=== PATIENT | female | born 1950 | race Caucasian/White ===

== ENCOUNTER 2017-10-06 20:35 | Observation (INO) | payer OTHER ==
--- NOTE | 2017-10-06 20:47 | PDOC ---
History of Present Illness - General Stated Complaint: FALL Time Seen by Provider: 10/06/17 20:44 History Source: Patient - History of Present Illness Initial Comments: The patient is a 66F with a history of HTN and T2DM who presents 6 hours s/p fall at home. The patient reports that her toilet over-flowed and she slid/ tripped in the water. She states she fell backwards, landed on her buttocks, did not hit her head, and denies LOC. She states she was unable to get up and was on the ground until her family member found her 6 hours later. She denies a history of falls. She endorses pain to her hips (different than her normal sciatica pain). Pain to her elbows and left shoulder. She also endorses BLE cellulitis w/ blisters that she is unable to vocalize how long she has had. She denies taking abx. She does not know her PCP. She denies fevers/chills, chest pain, SOB, or changes in sensation. She denies abdominal pain. 10/06/17 22:39 Past History - Past Medical History Allergies/Adverse Reactions: Allergies Allergy/AdvReac Type Severity Reaction Status Date / Time Penicillins AdvReac Itching Verified 10/07/17 04:54 Home Medications: Ambulatory Orders Nebivolol HCl [Bystolic] 10 mg PO DAILY 10/07/17 Pioglitazone HCl/Metformin HCl [Pioglitazone-Metformin 15850] 15 - 850 mg PO DAILY 10/07/17 Verapamil HCl [Verapamil ER] 120 mg PO HS 10/07/17 Verapamil HCl [Verapamil ER] 240 mg PO DAILY 10/07/17 Mupirocin Cream [Bactroban 2% Cream -] 1 applic TP BID #1 tube 10/08/17 Review of Systems - Review of Systems Comments:: GENERAL/CONSTITUTIONAL: No fever or chills. No weakness HEAD, EYES, EARS, NOSE AND THROAT: No change in vision. No ear pain or discharge. No sore throat CARDIOVASCULAR: No chest pain or shortness of breath RESPIRATORY: No cough, wheezing, or hemoptysis GASTROINTESTINAL: No nausea, vomiting, diarrhea or constipation GENITOURINARY: No dysuria, frequency, or change in urination MUSCULOSKELETAL: +chronic back pain, rest per HPI SKIN: +BLE erythema NEUROLOGIC: No headache, vertigo, loss of consciousness, or change in strength/ sensation ENDOCRINE: No increased thirst. No abnormal weight change HEMATOLOGIC/LYMPHATIC: No anemia, easy bleeding, or history of blood clots ALLERGIC/IMMUNOLOGIC: No hives or skin allergy 10/06/17 20:49 *Physical Exam - Physical Exam Comments: GENERAL: Awake, alert, and fully oriented, mild distress; patient with poor hygiene; she has urine soaked clothing, and toilet paper under her clothes that she claims is just from today HEAD: No signs of trauma, normocephalic, atraumatic EYES: PERRL, EOMI, sclera anicteric, conjunctiva clear ENT: Hearing grossly normal, nares patent, oropharynx clear without exudates. Moist mucosa NECK: Normal ROM, supple, no lymphadenopathy LUNGS: No distress, speaks full sentences, clear to auscultation bilaterally HEART:Regular rate and rhythm, normal S1 and S2, no murmurs appreciated, peripheral pulses normal and equal bilaterally ABDOMEN: Soft, nontender, normoactive bowel sounds. No guarding, no rebound EXTREMITIES : Bruising to left shoulder, B/l posterior forearms, lower back, R gluteus, BLE erythema and excoriations to mid robbins. Several bruises appear to be in multiple stages of healing, though patient denies multiple falls; Reduced range of motion in all extremities 2/2 pain, no edema. No clubbing or cyanosis NEUROLOGICAL: Cranial nerves II through XII grossly intact. Stuttering speech, no focal sensorimotor deficits SKIN: BLE erythema and excoriations and bruising as noted above 10/06/17 20:50 ED Treatment Course - LABORATORY CBC & Chemistry Diagram: 10/08/17 06:00 10/08/17 06:00 Medical Decision Making - Medical Decision Making The patient is a 66F with a PMH of HTN and T2DM who presents s/p mechanical fall from home Patient with variable story to different staff. Endorsed multiple falls to nursing staff while only reported one fall upon my interview Concern for rhabdo, infection, head injury, multiple fracture, lyte imbalance; will r/o PNA, UTI ED Course CMP, CBC, UA, UCx, Serum EtOH, UDS, CPK ECG, CT head, pelvis, b/l hip, c-spine and lumbar spine/sacrum; b/l elbow XR, left shoulder XR Tylenol and naproxen for pain 10/06/17 22:48 Patient with continued pain, will give Morphine 2mg IV Plan for admission when imaging completed Patient with mild rhabdo, CK 900s 10/06/17 23:25 I have transferred care of the patient to Dr. Hall and discussed the clinical presentation, work-up and ED course thus far. 10/06/17 23:57 *DC/Admit/Observation/Transfer Diagnosis at time of Disposition: Fall, Rhabdomyolysis - Discharge Dispostion Condition at time of disposition: Improved - Prescriptions - Referrals - Patient Instructions - Post Discharge Activity
[2017-10-06] MEDS ORDERED: NAPROXEN 500 MG TABLET (FP) PO ONE (20:56)
[2017-10-06] MEDS ORDERED: ACETAMINOPHEN 1000 MG/100 ML VIAL (NON FORMULARY) IVPB ONE (21:09)
[2017-10-06] MEDS ORDERED: NAPROXEN 500 MG TABLET (FP) ONE (21:11)
[2017-10-06 22:21] LABS: HEMOGLOBIN 13.3 GM/dL (10.7-15.3); MCHC 34.2 g/dl (32.0-36.0); MEAN CELL VOLUME 84.7 fl (80-96); MEAN PLT VOLUME 11.5 fl (7.5-11.1); PLATELET COUNT 167 K/MM3 (134-434); RDW 14.8 % (11.6-15.6); WHITE BLOOD COUNT 10.8 K/mm3 (4.0-10.0)
--- NOTE | 2017-10-06 22:21 | PDOC ---
Attending Attestation - Resident Resident Name: Nbail Malhotra - ED Attending Attestation I have performed the following: I have examined & evaluated the patient, The case was reviewed & discussed with the resident, I agree w/resident's findings & plan, Exceptions are as noted - HPI HPI: 10/06/17 22:49 66 F with h/o DM, HTN presents to ER after falling today. Pt states that she slipped in the bathroom after her toilet overflowed. Pt states she fell onto her buttocks and was unable to get back up. She states she was on the floor for 6 hours before anybody found her. Pt denies head injury/LOC. Denies neck pain. Endorses L shoulder pain and lower back pain. Pt in ED is disheveled and tremulous. Admits to repeated falls at home. States she lives alone. Denies CP/SOB/palpitations/lightheadedness. Denies abdominal pain/N/V/D. - Physicial Exam PE: 10/06/17 22:58 "GENERAL: Awake, alert, in no acute distress. HEAD: No signs of trauma EYES: PERRLA, EOMI, sclera anicteric, conjunctiva clear ENT: Auricles normal inspection, hearing grossly normal, nares patent, oropharynx clear without exudates. Moist mucosa NECK: Nontender, no stepoffs, Normal ROM, supple, no lymphadenopathy, JVD, or masses LUNGS: Breath sounds equal, clear to auscultation bilaterally. No wheezes, and no crackles HEART: Regular rate and rhythm, normal S1 and S2, no murmurs, rubs or gallops ABDOMEN: Soft, nontender, normoactive bowel sounds. No guarding, no rebound. No masses EXTREMITIES: + ecchymosis to upper back and L shoulder, + erythema with open sores to BLE BACK: + lumbar TTP - Medical Decision Making 10/06/17 23:05 66 F presenting with fall. Pt disheveled, with injuries of various ages on her body. Pt likely has been having multiple falls at home, where she lives alone. Pt also tremulous on exam, concerning for possible ETOH withdrawal though pt denies ETOH or other substance use. - Labs - CT head/c-spine/pelvis - XR L shoulder and chest - Admit
[2017-10-06] MEDS ORDERED: ACETAMINOPHEN INJECTION 100 ML IVPB ONE (22:29)
[2017-10-06 22:45] LABS: URINE APPEARANCE SLCLOUDY; URINE BILIRUBIN NEGATIVE (<2.0 mg/dL); URINE COLOR YELLOW; URINE GLUCOSE (UA) NEGATIVE (NEGATIVE); URINE KETONE TRACE (NEGATIVE); URINE LEUK ESTERASE NEGATIVE (NEGATIVE); URINE NITRITE NEGATIVE (NEGATIVE); URINE PROTEIN NEGATIVE (NEGATIVE); URINE UROBILINOGEN NEGATIVE mg/dL (0.2-1.0)
[2017-10-06 22:46] LABS: ALBUMIN 3.5 g/dl (3.4-5.0); ALK PHOS 60 U/L (45-117); ANION GAP 5 (8-16); BILIRUBIN,TOTAL 0.8 mg/dL (0.2-1.0); BLOOD UREA NITROGEN 23 mg/dL (7-18); CALCIUM 9.1 mg/dL (8.5-10.1); CHLORIDE 107 mmol/L (98-107); CO2 30 mmol/L (21-32); CREATININE 0.6 mg/dL (0.55-1.02); GLUCOSE,RANDOM 163 mg/dL (74-106); POTASSIUM 3.5 mmol/L (3.5-5.1); SGOT/AST 29 U/L (15-37); SGPT/ALT 19 U/L (12-78); SODIUM 142 mmol/L (136-145); TOT PROT 6.6 g/dl (6.4-8.2)
[2017-10-06 22:47] LABS: EPI CELLS RARE /HPF (FEW); URINE BACTERIA RARE /hpf (NONE SEEN); URINE MUCUS RARE
[2017-10-06] MEDS ORDERED: morphine CARPU-JECT 4 MG/1 ML DISP.SYRIN IVPUSH ONE (22:58)
[2017-10-06] MEDS ORDERED: SODIUM CHLORIDE 0.9% 500 ML INFUS.BAG IV ONE (23:02)
[2017-10-06 23:03] LABS: COCAINE, UR NEGATIVE ng/ml (CUTOFF=300); METHADONE, UR NEGATIVE ng/ml (CUTOFF=300); OPIATES, URI NEGATIVE ng/ml (CUTOFF=300); PHENCYCLIDINE,URINE NEGATIVE ng/ml (CUTOFF=25); URINE AMPHETAMINES NEGATIVE ng/ml (CUTOFF=500); URINE BARBITURATES NEGATIVE ng/ml (CUTOFF=200); URINE BENZODIAZEPINES NEGATIVE ng/ml (CUTOFF=200)
[2017-10-06] MEDS ORDERED: MORPHINE SULFATE 2 MG/ML VIAL ONE (23:22)
--- NOTE | 2017-10-07 00:08 | PDOC ---
*Physical Exam - Vital Signs Last Vital Signs Temp Pulse Resp BP Pulse Ox 96.6 F L 73 18 160/71 96 10/06/17 20:35 10/06/17 20:35 10/06/17 20:35 10/06/17 20:35 10/06/17 20:35 ED Treatment Course - LABORATORY CBC & Chemistry Diagram: 10/06/17 22:10 10/06/17 22:10 - ADDITIONAL ORDERS Additional order review: Laboratory Results 10/06/17 10/06/17 10/06/17 22:35 22:35 22:10 Sodium Potassium Chloride Carbon Dioxide Anion Gap BUN Creatinine Creat Clearance w eGFR Random Glucose Lactic Acid Calcium Total Bilirubin AST ALT Alkaline Phosphatase Creatine Kinase Creatine Kinase Index CK-MB (CK-2) Total Protein Albumin Urine Color Yellow Urine Appearance Slcloudy Urine pH 6.0 Ur Specific [place] 1.016 Urine Protein Negative Urine Glucose (UA) Negative Urine Ketones Trace H Urine Blood 2+ H Urine Nitrite Negative Urine Bilirubin Negative Urine Urobilinogen Negative Ur Leukocyte Esterase Negative Urine WBC (Auto) 6 Urine RBC (Auto) 1 Ur Epithelial Cells Rare Urine Bacteria Rare Urine Mucus Rare Opiates Screen Negative Methadone Screen Negative Barbiturate Screen Negative Phencyclidine Screen Negative Ur Amphetamines Screen Negative MDMA (Ecstasy) Screen Negative Benzodiazepines Screen Negative Cocaine Screen Negative U Marijuana (THC) Screen Negative Alcohol, Quantitative < 5.0 10/06/17 10/06/17 10/06/17 22:10 22:10 22:09 Sodium 142 Potassium 3.5 Chloride 107 Carbon Dioxide 30 Anion Gap 5 L BUN 23 H Creatinine 0.6 Creat Clearance w eGFR > 60 Random Glucose 163 H Lactic Acid 1.3 Calcium 9.1 Total Bilirubin 0.8 AST 29 ALT 19 Alkaline Phosphatase 60 Creatine Kinase 988 H Creatine Kinase Index 1.0 CK-MB (CK-2) 10.51 H Total Protein 6.6 Albumin 3.5 Urine Color Urine Appearance Urine pH Ur Specific [place] Urine Protein Urine Glucose (UA) Urine Ketones Urine Blood Urine Nitrite Urine Bilirubin Urine Urobilinogen Ur Leukocyte Esterase Urine WBC (Auto) Urine RBC (Auto) Ur Epithelial Cells Urine Bacteria Urine Mucus Opiates Screen Methadone Screen Barbiturate Screen Phencyclidine Screen Ur Amphetamines Screen MDMA (Ecstasy) Screen Benzodiazepines Screen Cocaine Screen U Marijuana (THC) Screen Alcohol, Quantitative 10/06/17 22:10 RBC 4.60 MCV 84.7 MCHC 34.2 RDW 14.8 MPV 11.5 H - RADIOLOGY Radiograph Interpretation: Non-Con Head CT: Jd Parrish MD wrote on Oct 07, 2017 at 01:19 AM: Referring Physician: JOSELIN BLANCHARD Patient Name: SANTANA NGUYEN THIS IS A PRELIMINARY REPORT FROM IMAGING FRONT OFFICE REPRESENTATIVE DATE OF SERVICE: 2017-10-07 00:54:46 IMAGES: [id number] EXAM: HEAD CT WITHOUT CONTRAST HISTORY: Patient fell COMPARISON: None. FINDINGS: Involutional changes. No hemorrhage. No obvious infarct. Osseous structures are intact. CT Cervical Spine: Jd Parrish MD wrote on Oct 07, 2017 at 01:23 AM: Referring Physician: JOSELIN BLANCHARD Patient Name: SANTANA NGUYEN THIS IS A PRELIMINARY REPORT FROM [facility]AGING FRONT OFFICE REPRESENTATIVE DATE OF SERVICE: 2017-10-07 00:52:03 IMAGES: [id number] EXAM: CERVICAL SPINE CT W/O CONTR HISTORY: Patient fell COMPARISON: None. FINDINGS: Negative for cervical spine fracture or malalignment. Degenerative changes. Enlarged thyroid. CT Lumbar Spine: Jd Parrish MD wrote on Oct 07, 2017 at 01:31 AM: Referring Physician: JOSELIN BLANCHARD Patient Name: SANTANA NGUYEN THIS IS A PRELIMINARY REPORT FROM [facility]ING FRONT OFFICE REPRESENTATIVE DATE OF SERVICE: 2017-10-07 00:56:06 IMAGES: 530 EXAM: LUMBAR SPINE CT W/O CONTRAST HISTORY: Patient fell COMPARISON: None. FINDINGS: Degenerative changes. There is depression of the midportion of the superior and inferior endplate of L2. This looks like Schmorl's nodes rather than an acute fracture. Nevertheless, correlate with any trauma/pain to this particular area. No other lumbar spinal fracture or malalignment. The sacrum is intact as well. Note made of an enlarged uterus probably due to fibroids but recommend followup to confirm - Medications Given in the ED: ED Medications Discontinued Medications Generic Name Dose Route Start Last Admin Trade Name Freq PRN Reason Stop Dose Admin Acetaminophen 1,000 mg 10/06/17 21:09 10/06/17 22:41 Ofirmev Injection - IVPB 10/06/17 21:10 1,000 mg ONCE ONE Administration Morphine Sulfate 2 mg 10/06/17 22:58 10/06/17 23:36 Morphine Injection - IVPUSH 10/06/17 22:59 2 mg ONCE ONE Administration Naproxen 500 mg 10/06/17 20:56 10/06/17 21:17 Naprosyn - PO 10/06/17 20:57 500 mg ONCE ONE Administration Sodium Chloride 1,000 ml 10/06/17 23:02 10/06/17 23:36 Normal Saline - IV 10/06/17 23:03 1,000 ml ONCE ONE Administration Medical Decision Making - Medical Decision Making 10/07/17 00:02 Received sign out from Dr. Malhotra. In short, pt is a 66 y/o female demented at baseline presenting after unwitnessed fall at home around 15: 00 likely mechanical secondary to toilet bowl water. Tender C-spine shoulder, and lower back. Multiple wounds of varying age. Possibly s/p previous falls. Elevated CK, concerning for Rhabdo. Pending CT and Radiograph. Likely admitted. 10/07/17 01:20 Pt complaining of lower back pain. Will order tramadol for pain; pt states she does not want additional opiates. Avoiding NSAIDS with concern for rhabdo. 10/07/17 01:36 Telephone consult with [facility] Hospitalist team. Agree to admit for med/surg on observation status. 10/07/17 02:50 building tech reports he is unable to transmit the pelvic CT to Imaging [facility] layer. He further states he cannot call IT because it is a problem isolated to a single scan. Will attempt to resend. Hospital team alerted. *DC/Admit/Observation/Transfer Diagnosis at time of Disposition: Fall Qualifiers: Encounter type: initial encounter Qualified Code(s): W19.XXXA - Unspecified fall, initial encounter Rhabdomyolysis Qualifiers: Rhabdomyolysis type: traumatic Encounter type: initial encounter Qualified Code (s): T79.6XXA - Traumatic ischemia of muscle, initial encounter - Discharge Dispostion Condition at time of disposition: Fair Decision to Admit order: Yes - Referrals - Patient Instructions - Post Discharge Activity
[2017-10-07] MEDS ORDERED: traMADol HCL 50 MG TABLET PO ONE (01:32)
[2017-10-07] MEDS ORDERED: SODIUM CHLORIDE 0.9% 500 ML INFUS.BAG IV ONE (01:32)
[2017-10-07] MEDS ORDERED: traMADol HCL 50 MG TABLET ONE ×2 (01:55→09:22)
[2017-10-07] MEDS ORDERED: SODIUM CHLORIDE 1,000 ML IV SCH (02:15)
--- NOTE | 2017-10-07 02:21 | PN ---
Teaching Attending Note Name of Resident: Sukh Ramirez ATTENDING PHYSICIAN STATEMENT I saw and evaluated the patient. I reviewed the resident's note and discussed the case with the resident. I agree with the resident's findings and plan as documented. SUBJECTIVE: Patient is a 66 year old woman with history of DM, HTN presents to ER after falling today. She says that she slipped in the bathroom after her toilet overflowed. She fell onto her buttocks and was unable to get back up. She states she was on the floor for 6 hours before anybody found her. She denies head injury/LOC. Denies neck pain but has left shoulder pain and lower back pain. Admits to repeated falls at home which she attributes to worsening "sciatica". Uses a tripod walker. States she lives alone. OBJECTIVE: Alert Vital Signs Period Temp Pulse Resp BP Sys/Bragg Pulse Ox Last 24 Hr 96.6 F 73 18 160/71 96 HEENT: No Jaundice, eye redness or discharge, PERRLA, EOMI. Normocephalic, atraumatic. External ears are normal and hearing is grossly intact. No nasal discharge. Neck: Supple, nontender. No palpable adenopathy or thyromegaly. No JVD Chest: Good effort. Clear to auscultation and percussion. Heart: Regular. No S3, rub or murmur Abdomen: Not distended, soft, nontender and no HSM. No rebound or guarding. Normoactive bowel sounds. Ext: Peripheral pulses intact. Ecchymosis on both forearms (happened due to multiple efforts to lift herself off the bathroom floor); bilateral lower leg erythema with abrasions and a superficial ulcer on the left leg; tender lower back and hips and groans with movement. Skin: Warm and dry. No petechiae, rash or ecchymosis. Neuro: Alert. Oriented x3. CN 2-12 grossly intact. Sensation grossly intact in all four extremities and DTR are symmetric. Abnormal Lab Results 10/06/17 10/06/17 10/06/17 22:10 22:10 22:10 WBC 10.8 H MPV 11.5 H Anion Gap 5 L BUN 23 H Random Glucose 163 H Creatine Kinase 988 H CK-MB (CK-2) 10.51 H Urine Ketones Urine Blood 10/06/17 22:35 WBC MPV Anion Gap BUN Random Glucose Creatine Kinase CK-MB (CK-2) Urine Ketones Trace H Urine Blood 2+ H ASSESSMENT AND PLAN: 1. Fall and Rhabdomyolysis - Preliminary review of imaging studies reveal no fracture or acute intracranial pathology. Will treat with IV NS and monitor kidney function and CPK. Consult neurology and get TFT in view of large thyroid noted on CT neck. Implement fall precautions. Consult PT. Her leg lesions are chronic and more likely due to stasis dermatitis and peripheral neuropathy than acute cellulitis. Will provide topical wound care for skin abrasions and superficial ulcer. 2. DM - For now, we will hold the home diabetes drugs and implement sliding scale insulin regimen. Provide comprehensive diabetes care with patient teaching and counseling about the importance of euglycemia, eye care and foot care. 3. Obesity - Will provide patient all the necessary assistance, counseling and positive reinforcement to facilitate weight loss. Consult pulp mill team leader. 4. DVT prophylaxis - Lovenox 40 mg SQ q 24 hours. 5. Advance directives - Full code
--- NOTE | 2017-10-07 03:15 | HP ---
CHIEF COMPLAINT: unwitnessed fall PCP: unknown HISTORY OF PRESENT ILLNESS: 66 yo female with PMH NIDDM and HTN presented to the ED s/p mechanical fall. She states earlier today she slipped on water in her bathroom as she has been having plumbing issues and the floor was wet. She states she fell and landed on her buttocks. She denies head trauma or LOC. She states that she was unable to get up for 4-5 hours until a family member came to check on her and found her on the ground. She says that she tried multiple times to get up but kept slipping back down due to the water on the ground. She does endorse a recent history of falls, though she states she usually falls on the carpet and is able to get herself back up with no issue. She attributes her falls to recent worsening of her sciatica. She has not been seen by ortho or neurosurgery but expresses interest in "steroid shots or surgical procedures." ER course was notable for: (1) Head/neck/lumbar/pelvis CT, R and L elbow radiographs, no acute fx noted (2) CK 988, CK-MB 10.51 (3) 1L NS Recent Travel: none PAST MEDICAL HISTORY: HTN NIDDM PAST SURGICAL HISTORY: Denies Social History: Smoking: Denies Alcohol: Denies Drugs: Denies Family History: Allergies No Known Allergies Allergy (Verified 10/06/17 20:57) HOME MEDICATIONS: Home Medications Medication Instructions Recorded Nebivolol HCl [Bystolic] 10 mg PO DAILY 10/07/17 Pioglitazone HCl/Metformin HCl 15 - 850 mg PO DAILY 10/07/17 [Pioglitazone-Metformin 15-850] Verapamil HCl [Verapamil ER] 120 mg PO HS 10/07/17 Verapamil HCl [Verapamil ER] 240 mg PO DAILY 10/07/17 REVIEW OF SYSTEMS CONSTITUTIONAL: Absent: fever, chills, diaphoresis, generalized weakness, malaise, loss of appetite, weight change HEENT: Absent: rhinorrhea, nasal congestion, throat pain, throat swelling, difficulty swallowing, mouth swelling, ear pain, eye pain, visual changes CARDIOVASCULAR: Absent: chest pain, syncope, palpitations, irregular heart rate, lightheadedness , peripheral edema RESPIRATORY: Absent: cough, shortness of breath, dyspnea with exertion, orthopnea, wheezing, stridor, hemoptysis GASTROINTESTINAL: Absent: abdominal pain, abdominal distension, nausea, vomiting, diarrhea, constipation, melena, hematochezia GENITOURINARY: Absent: dysuria, frequency, urgency, hesitancy, hematuria, flank pain, genital pain MUSCULOSKELETAL: myalgia, arthralgia, joint swelling, back pain, neck pain Absent: SKIN: Absent: rash, itching, pallor HEMATOLOGIC/IMMUNOLOGIC: Absent: easy bleeding, easy bruising, lymphadenopathy, frequent infections ENDOCRINE: Absent: unexplained weight gain, unexplained weight loss, heat intolerance, cold intolerance NEUROLOGIC: Absent: headache, focal weakness or paresthesias, dizziness, unsteady gait, seizure, mental status changes, bladder or bowel incontinence PSYCHIATRIC: Absent: anxiety, depression, suicidal or homicidal ideation, hallucinations. PHYSICAL EXAMINATION Vital Signs - 24 hr 10/06/17 20:35 Temperature 96.6 F L Pulse Rate 73 Respiratory 18 Rate Blood Pressure 160/71 O2 Sat by Pulse 96 Oximetry (%) GENERAL: A&O, no acute distress HEAD: Normocephalic, atraumatic. EYES: PERRL, EOMI, no scleral icterus EARS, NOSE, THROAT: oropharynx clear without exudates. Moist mucous membranes. NECK: supple without lymphadenopathy, no nodules or masses on thyroid palpation LUNGS: CTA b/l, no crackles or wheezes HEART: Regular rate and rhythm, normal S1 and S2 without murmur, rub or gallop. ABDOMEN: Soft, nontender to palpation, normoactive bowel sounds MUSCULOSKELETAL: tenderness on neck and shoulder palpation, tenderness on b/l elbows, tenderness left hip and lumbar spine. No CVA tenderness. UPPER EXTREMITIES: Multiple abrasions b/l, erythema of b/l elbows. 2+ pulses, warm, well-perfused. No cyanosis. No clubbing. No peripheral edema. LOWER EXTREMITIES: multiple abrasions b/l with small nonpurulent wound/ulcer on right robbins. Erythema noted on ankles b/l. 2+ pulses, warm, well-perfused. No calf tenderness. Trace edema b/l NEUROLOGICAL: Cranial nerves II-XII grossly intact. Normal speech. PSYCHIATRIC: Cooperative. Good eye contact. Appropriate mood and affect. SKIN: Warm, dry, normal turgor, no rashes or lesions noted Laboratory Results - last 24 hr 10/06/17 10/06/17 10/06/17 22:09 22:10 22:10 WBC 10.8 H RBC 4.60 Hgb 13.3 Hct 39.0 MCV 84.7 MCH 29.0 MCHC 34.2 RDW 14.8 Plt Count 167 MPV 11.5 H Sodium 142 Potassium 3.5 Chloride 107 Carbon Dioxide 30 Anion Gap 5 L BUN 23 H Creatinine 0.6 Creat Clearance w eGFR > 60 Random Glucose 163 H Lactic Acid 1.3 Calcium 9.1 Total Bilirubin 0.8 AST 29 ALT 19 Alkaline Phosphatase 60 Creatine Kinase Creatine Kinase Index CK-MB (CK-2) Total Protein 6.6 Albumin 3.5 Urine Color Urine Appearance Urine pH Ur Specific [place] Urine Protein Urine Glucose (UA) Urine Ketones Urine Blood Urine Nitrite Urine Bilirubin Urine Urobilinogen Ur Leukocyte Esterase Urine WBC (Auto) Urine RBC (Auto) Ur Epithelial Cells Urine Bacteria Urine Mucus Opiates Screen Methadone Screen Barbiturate Screen Phencyclidine Screen Ur Amphetamines Screen MDMA (Ecstasy) Screen Benzodiazepines Screen Cocaine Screen U Marijuana (THC) Screen Alcohol, Quantitative 10/06/17 10/06/17 10/06/17 22:10 22:10 22:35 WBC RBC Hgb Hct MCV MCH MCHC RDW Plt Count MPV Sodium Potassium Chloride Carbon Dioxide Anion Gap BUN Creatinine Creat Clearance w eGFR Random Glucose Lactic Acid Calcium Total Bilirubin AST ALT Alkaline Phosphatase Creatine Kinase 988 H Creatine Kinase Index 1.0 CK-MB (CK-2) 10.51 H Total Protein Albumin Urine Color Yellow Urine Appearance Slcloudy Urine pH 6.0 Ur Specific [place] 1.016 Urine Protein Negative Urine Glucose (UA) Negative Urine Ketones Trace H Urine Blood 2+ H Urine Nitrite Negative Urine Bilirubin Negative Urine Urobilinogen Negative Ur Leukocyte Esterase Negative Urine WBC (Auto) 6 Urine RBC (Auto) 1 Ur Epithelial Cells Rare Urine Bacteria Rare Urine Mucus Rare Opiates Screen Methadone Screen Barbiturate Screen Phencyclidine Screen Ur Amphetamines Screen MDMA (Ecstasy) Screen Benzodiazepines Screen Cocaine Screen U Marijuana (THC) Screen Alcohol, Quantitative < 5.0 10/06/17 22:35 WBC RBC Hgb Hct MCV MCH MCHC RDW Plt Count MPV Sodium Potassium Chloride Carbon Dioxide Anion Gap BUN Creatinine Creat Clearance w eGFR Random Glucose Lactic Acid Calcium Total Bilirubin AST ALT Alkaline Phosphatase Creatine Kinase Creatine Kinase Index CK-MB (CK-2) Total Protein Albumin Urine Color Urine Appearance Urine pH Ur Specific [place] Urine Protein Urine Glucose (UA) Urine Ketones Urine Blood Urine Nitrite Urine Bilirubin Urine Urobilinogen Ur Leukocyte Esterase Urine WBC (Auto) Urine RBC (Auto) Ur Epithelial Cells Urine Bacteria Urine Mucus Opiates Screen Negative Methadone Screen Negative Barbiturate Screen Negative Phencyclidine Screen Negative Ur Amphetamines Screen Negative MDMA (Ecstasy) Screen Negative Benzodiazepines Screen Negative Cocaine Screen Negative U Marijuana (THC) Screen Negative Alcohol, Quantitative ASSESSMENT/PLAN: 66 yo female with PMH NIDDM and HTN, admitted for observation s/p mechanical fall, found with mild Rhabdo in ED Rhabdomyolysis -Pt states she was on the ground for 4-5 hours until she was found by family -CK 988, CK-MB 10.51 -UA noted, yellow urine, 2+blood, 6 RBCs -Fluids, NS @100 cc/hr -Avoid nephrotoxic drugs Mechanical Trauma from fall -Campos imaging negative for fractures from my perspective, no hemorrhaging or large hematomas noted, awaiting official reports -Pain control with tramadol for now -Avoid NSAID's due to mild rhabdo -Pt did not tolerate morphine due to POURER depression/dizziness Repeated falls attributed to Sciatica -Pt states that her sciatica which she has had for years is worsening -States she has not seen neurosurgery, orthopedics, or pain medicine in the past -Pt asked about further treatment options and specifically mentioned cortisone injections or or possibility of spinal procedures and requests to be seen -Will consult neurosurgery for acute vs outpatient recommendations and follow up -Pt could also benefit from discussion with social sciences research scientist and physical therapy about home conditions Enlarged Thyroid noted on Cervical CT scan -discussed with pt who states she has always had some minimal thyroid issues, though has never had any masses or cancers -Denies ever having a need for medication -Will check thyroid function in AM and refer to endocrine if appropriate NIDDM -Pt on Actoplus/Metformin combination at home 15mg-850mg PO Daily -BGM ACHS -Insulin Sliding scale with decreased insulin units at lower paramaters as pt is insulin naive Can be reevaluated in AM and adjusted based on BGMs HTN -Resume home meds -Bystolic 10 mg PO daily -Verapamil 120 mg PO HS -Verapamil 240 mg PO Daily (AM) DVT Prophylaxis -Heparin 5000 units SQ TID, can be switched to Lovenox if CK and BUN resolve FEN -Fluids: NS @ 100 cc/hr -Electrolytes: No electrolyte abnormalities, BMP in AM -Nutrition: Diabetic diet, encourage PO fluid intake Disposition Observation Visit type - Emergency Visit Emergency Visit: Yes ED Registration Date: 10/06/17 Care time: The patient presented to the Emergency Department on the above date and was hospitalized for further evaluation of their emergent condition. - New Patient This patient is new to me today: Yes Date on this admission: 10/07/17 - Critical Care Critical Care patient: No Hospitalist Screening - Colonoscopy Questionnaire Colonoscopy Questionnaire: Colonoscopy Questionnaire - Patient: 50 - 75 years old and never had a screening colonoscopy: Unknown History of colon or rectal polyps, or CA: Unknown History of IBD, Crohn's disease or UC: Unknown History of abdominal radiation therapy as a child: Unknown - Relative: 1 with colon or rectal CA, or polyps at age 60 or younger: Unknown Colon or rectal CA diagnosed at age 45 or younger: Unknown Multiple relatives with colon or rectal CA: Unknown - Outcome: Screening Result: Negative Screen
[2017-10-07] MEDS: SODIUM CHLORIDE 1,000 ML IV SCH (04:24)
[2017-10-07] MEDS ORDERED: traMADol HCL 50 MG TABLET PO PRN (05:53)
[2017-10-07] MEDS ORDERED: HEPARIN NA (PORCINE) 5,000 UNITS/ML 1ML VIAL ONE (06:11)
[2017-10-07] MEDS: HEPARIN NA (PORCINE) 5,000 UNITS/ML 1ML VIAL SQ SCH ×3 (06:17→22:58)
[2017-10-07 06:35] LABS: HEMATOCRIT 33.8 % (32.4-45.2); HEMOGLOBIN 11.7 GM/dL (10.7-15.3); MCH 29.4 pg (25.7-33.7); MCHC 34.7 g/dl (32.0-36.0); MEAN CELL VOLUME 84.8 fl (80-96); MEAN PLT VOLUME 10.9 fl (7.5-11.1); PLATELET COUNT 136 K/MM3 (134-434); RBC 3.99 M/mm3 (3.60-5.2); RDW 15.1 % (11.6-15.6); WHITE BLOOD COUNT 7.6 K/mm3 (4.0-10.0)
[2017-10-07 07:00] LABS: ALBUMIN 2.8 g/dl (3.4-5.0); ANION GAP 6 (8-16); BLOOD UREA NITROGEN 21 mg/dL (7-18); CALCIUM 8.2 mg/dL (8.5-10.1); CHLORIDE 109 mmol/L (98-107); CO2 29 mmol/L (21-32); CREATININE 0.5 mg/dL (0.55-1.02); GLUCOSE,RANDOM 177 mg/dL (74-106); MAGNESIUM 1.5 mg/dL (1.8-2.4); PHOSPHOROUS 2.9 mg/dL (2.5-4.9); POTASSIUM 3.5 mmol/L (3.5-5.1); SGOT/AST 26 U/L (15-37); SGPT/ALT 17 U/L (12-78); SODIUM 144 mmol/L (136-145)
[2017-10-07 07:10] LABS: ALK PHOS 48 U/L (45-117); BILIRUBIN,TOTAL 0.6 mg/dL (0.2-1.0); TOT PROT 5.3 g/dl (6.4-8.2)
[2017-10-07] MEDS ORDERED: HEMOQUE TEST 1 EACH EACH ONE (08:05)
[2017-10-07] MEDS: INSULIN SLIDING SCALE (NOVOLOG) 1 VIAL SQ SCH ×4 (08:09→22:58)
[2017-10-07] MEDS: VERAPAMIL HCL 240 MG E.R. TABLET (FP) PO SCH (09:02)
[2017-10-07] MEDS ORDERED: ACETAMINOPHEN 325 MG TABLET (FP) ONE ×2 (09:02→14:29)
[2017-10-07] MEDS: NEBIVOLOL 10 MG TABLET (FP) PO SCH (09:02)
[2017-10-07] MEDS: ACETAMINOPHEN 325 MG TABLET (FP) PO SCH ×3 (09:03→23:02)
--- NOTE | 2017-10-07 09:33 | PN ---
Physical Exam: SUBJECTIVE: Patient is a 66 y/o female with a history of NIDDM and HTN who is admitted for rhabdomyolysis. She complains of back pain but states it is chronic. No acute events overnight. OBJECTIVE: Vital Signs Temperature 98.2 F 10/07/17 02:58 Pulse Rate 72 10/07/17 02:58 Respiratory Rate 17 10/07/17 02:58 Blood Pressure 137/63 10/07/17 02:58 O2 Sat by Pulse Oximetry (%) 99 10/07/17 02:58 GENERAL: The patient is awake, alert, and fully oriented, in no acute distress. NECK: Trachea midline, full range of motion, supple. LUNGS: Breath sounds equal, clear to auscultation bilaterallye. HEART: Regular rate and rhythm, S1, S2 ABDOMEN: Soft, nontender, nondistended, normoactive bowel sounds, s. EXTREMITIES: 2+ pulses, warm, well-perfused, no edema. PSYCH: Normal mood, normal affect. SKIN: multiple ulcers at lower extremity, erythematous CBC, BMP 10/07/17 06:08 10/07/17 06:08 Active Medications Acetaminophen (Tylenol -) 650 mg PO Q6H [facility] Last Admin: 10/07/17 09:03 Dose: 650 mg Heparin Sodium (Porcine) (Heparin -) 5,000 unit SQ TID [facility] Last Admin: 10/07/17 06:17 Dose: 5,000 unit Sodium Chloride (Normal Saline -) 1,000 mls @ 100 mls/hr IV ASDIR [facility] Stop: 10/08/17 12:14 Last Admin: 10/07/17 04:24 Dose: 100 mls/hr Insulin Aspart (Novolog Vial Sliding Scale -) 1 vial SQ ACHS [facility]; Protocol Last Admin: 10/07/17 08:09 Dose: 1 unit Magnesium Oxide (Mag-Ox -) 800 mg PO ONCE ONE Stop: 10/07/17 09:20 Nebivolol (Bystolic -) 10 mg PO DAILY [facility] Last Admin: 10/07/17 09:02 Dose: 10 mg Tramadol HCl (Ultram -) 50 mg PO Q8H PRN PRN Reason: PAIN LEVEL 6-10 Verapamil HCl (Calan Sr -) 120 mg PO [facility] Verapamil HCl (Calan Sr -) 240 mg PO DAILY [facility] Last Admin: 10/07/17 09:02 Dose: 240 mg ASSESSMENT/PLAN: Patient is a 66 y/o female with a history of NIDDM and HTN who is admitted for rhabdomyolysis. #Rhabdomyolysis - CK trending down 786 - NS @100 #fall - imagining reviewed and no acute fractures in B/L elbows, head, or cervical spine - CX ray: no acute chest process #sciatica - spoke to Dr. Paul, suggested MRI and f/u as an outpatient - f/u Dr. Eduardo - f/u PT - Lumbar spine CT: L3-L4 facet joint arthropathy, central canal stenosis, L4- L5 moderate degenerative facet joint arthropathy #DM - SS for now - pioglitazone/metformin held for Rhabdo #HTN - nebivolol 10 mg po daily - verapamil 240 mg in morning, 120 mg hs Visit type - Emergency Visit Emergency Visit: No - New Patient This patient is new to me today: No - Critical Care Critical Care patient: No
--- NOTE | 2017-10-07 09:35 | EKG ---
Test Reason : Blood Pressure : / mmHG Vent. Rate : 059 BPM Atrial Rate : 059 BPM P-R Int : 182 ms QRS Dur : 090 ms QT Int : 488 ms P-R-T Axes : 009 040 028 degrees QTc Int : 483 ms POOR DATA QUALITY, INTERPRETATION MAY BE ADVERSELY AFFECTED SINUS BRADYCARDIA WITH PREMATURE SUPRAVENTRICULAR COMPLEXES NONSPECIFIC ST AND T WAVE ABNORMALITY ABNORMAL ECG NO PREVIOUS ECGS AVAILABLE Confirmed by OREN WODOARD MD ([id number]) on 10/07/2017 9:35:03 AM Referred By: Confirmed By:OREN WOODARD MD
[2017-10-07] MEDS ORDERED: MAGNESIUM OXIDE 400 MG TABLET (FP) PO ONE (09:45)
[2017-10-07] MEDS ORDERED: MAGNESIUM OXIDE 400 MG TABLET (FP) ONE (10:06)
[2017-10-07] MEDS ORDERED: MAGNESIUM 2GM/50ML STERILE WATER IVPB IVPB ONE (11:27)
[2017-10-07] MEDS ORDERED: INSULIN REGULAR HUMAN 100 UNITS/ML *VIAL ONE (12:00)
--- NOTE | 2017-10-07 14:52 | PN ---
Teaching Attending Note Name of Resident: Brittny Hatfield ATTENDING PHYSICIAN STATEMENT I saw and evaluated the patient. I reviewed the resident's note and discussed the case with the resident. I agree with the resident's findings and plan as documented. SUBJECTIVE: Patient is lying in bed, with no acute distress. OBJECTIVE: Vital Signs Temperature 98.2 F 10/07/17 02:58 Pulse Rate 67 10/07/17 09:31 Respiratory Rate 18 10/07/17 09:31 Blood Pressure 124/57 10/07/17 09:31 O2 Sat by Pulse Oximetry (%) 100 10/07/17 09:31 CBCD WBC 7.6 K/mm3 (4.0-10.0) 10/07/17 06:08 RBC 3.99 M/mm3 (3.60-5.2) 10/07/17 06:08 Hgb 11.7 GM/dL (10.7-15.3) 10/07/17 06:08 Hct 33.8 % (32.4-45.2) 10/07/17 06:08 MCV 84.8 fl (80-96) 10/07/17 06:08 MCHC 34.7 g/dl (32.0-36.0) 10/07/17 06:08 RDW 15.1 % (11.6-15.6) 10/07/17 06:08 Plt Count 136 K/MM3 (134-434) 10/07/17 06:08 MPV 10.9 fl (7.5-11.1) 10/07/17 06:08 CMP Sodium 144 mmol/L (136-145) 10/07/17 06:08 Potassium 3.5 mmol/L (3.5-5.1) 10/07/17 06:08 Chloride 109 mmol/L (98-107) H 10/07/17 06:08 Carbon Dioxide 29 mmol/L (21-32) 10/07/17 06:08 Anion Gap 6 (8-16) L 10/07/17 06:08 BUN 21 mg/dL (7-18) H 10/07/17 06:08 Creatinine 0.5 mg/dL (0.55-1.02) L 10/07/17 06:08 Creat Clearance w eGFR > 60 (>60) 10/07/17 06:08 Random Glucose 177 mg/dL (74-106) H 10/07/17 06:08 Calcium 8.2 mg/dL (8.5-10.1) L 10/07/17 06:08 Total Bilirubin 0.6 mg/dL (0.2-1.0) 10/07/17 06:08 AST 26 U/L (15-37) 10/07/17 06:08 ALT 17 U/L (12-78) 10/07/17 06:08 Alkaline Phosphatase 48 U/L (45-117) D 10/07/17 06:08 Total Protein 5.3 g/dl (6.4-8.2) L 10/07/17 06:08 Albumin 2.8 g/dl (3.4-5.0) L 10/07/17 06:08 CARDIAC ENZYMES Creatine Kinase 786 IU/L (26-192) H 10/07/17 06:08 Current Medications Generic Name Dose Route Start Last Admin Trade Name Freq PRN Reason Stop Dose Admin Acetaminophen 650 mg 10/07/17 08:45 10/07/17 14:50 Tylenol - PO 650 mg Q6H PANTERA Administration Heparin Sodium (Porcine) 5,000 unit 10/07/17 06:00 10/07/17 14:50 Heparin - SQ 5,000 unit TID PANTERA Administration Sodium Chloride 1,000 mls @ 100 mls/hr 10/07/17 03:16 10/07/17 04:24 Normal Saline - IV 10/08/17 12:14 100 mls/hr ASDIR PANTERA Administration Insulin Aspart 1 vial 10/07/17 07:00 10/07/17 11:58 Novolog Vial Sliding Scale - SQ 2 unit ACHS PANTERA Administration Protocol Nebivolol 10 mg 10/07/17 10:00 10/07/17 09:02 Bystolic - PO 10 mg DAILY PANTERA Administration Verapamil HCl 120 mg 10/07/17 22:00 Calan Sr - PO HS PANTERA Verapamil HCl 240 mg 10/07/17 10:00 10/07/17 09:02 Calan Sr - PO 240 mg DAILY PANTERA Administration Home Medications Medication Instructions Recorded Nebivolol HCl [Bystolic] 10 mg PO DAILY 10/07/17 Pioglitazone HCl/Metformin HCl 15 - 850 mg PO DAILY 10/07/17 [Pioglitazone-Metformin 15-850] Verapamil HCl [Verapamil ER] 120 mg PO HS 10/07/17 Verapamil HCl [Verapamil ER] 240 mg PO DAILY 10/07/17 PE: per resident's note ASSESSMENT AND PLAN: Patient is a 66 y/o female with a history of NIDDM and HTN who is admitted for rhabdomyolysis s/p Fall. # s/p Fall with Rhabdomyolysis - On IVF NS will continue to monitor kidney function and CPK. # Moderate to severe spinal canal stenosis: physical therapy as an outpatient and follow up with ortho as an outpatient Lumbar spine CT: L3-L4 facet joint arthropathy, central canal stenosis, L4- L5 moderate degenerative facet joint arthropathy # Sciatica : follow with # T2DM: SS with coverage. eye care and foot care follow up. # Obesity - weight loss was adviced. Consult engineering librarian. # chronic lower extremity Lesions due to stasis dermatitis and peripheral neuropathy: apply topical wound care for skin abrasions and superficial ulcer. # hx of HTN: continue Home meds DVT prophylaxis - Lovenox 40 mg SQ q 24 hours. Advance directives - Full code PT evaluation
--- NOTE | 2017-10-07 16:30 | PN ---
Progress Note (short form) - Note Progress Note: ID consult dictated history of multiple falls asked to evaluate for cellulitis multiple ecchymoses no signs of cellulitis of the legs, she has multiple small ulcers- she reports legs were very swollen and weeping and are now improved would apply topical mupirocin falls rhabdomyolysis please call back if needed Problem List - Problems (1) Fall Code(s): W19.XXXA - UNSPECIFIED FALL, INITIAL ENCOUNTER Qualifiers: Encounter type: initial encounter Qualified Code(s): W19.XXXA - Unspecified fall, initial encounter (2) Rhabdomyolysis Code(s): M62.82 - RHABDOMYOLYSIS Qualifiers: Rhabdomyolysis type: traumatic Encounter type: initial encounter Qualified Code(s): T79.6XXA - Traumatic ischemia of muscle, initial encounter
--- NOTE | 2017-10-07 19:04 | CONS ---
INFECTIOUS DISEASE CONSULTATION DATE OF CONSULTATION: DATE OF DICTATION: 10/07/2017 REQUESTING PHYSICIAN: Hospitalist service. This is a 66-year-old woman admitted to the hospital after multiple falls at home. She reports she has sciatica and that she frequently falls. She reports that she has had edema of her legs. She called her doctor, was prescribed diuretic. The legs were weeping and had blisters which have improved. She denies fevers and chills. She otherwise has no complaints. ALLERGIES: She is apparently allergic to PENICILLIN. PAST MEDICAL HISTORY: Notable for hypertension, [id number] diabetes. SURGICAL HISTORY: Negative. SOCIAL HISTORY: She lives alone in an apartment. Denies any history of cigarette or substance use. FAMILY HISTORY: Noncontributory. MEDICATIONS AT HOME: Include Bystolic, pioglitazone, metformin, and verapamil. REVIEW OF SYSTEMS: She denies fevers and chills. She denies nausea, vomiting. She falls frequently, and she complains of sciatica. PHYSICAL EXAMINATION: General: She is awake and alert. She has multiple ecchymoses. Vital Signs: Temperature is 98.6, pulse of 67, blood pressure 124/57, respiratory rate is 18. She is saturating 100% on room air. HEENT: She is normocephalic. Her eyes are anicteric. Neck: Supple. Lungs: Clear to auscultation. Heart: Regular rate and rhythm. Abdomen: Soft. Extremities: Her legs are cool. They are mildly pink. She has multiple drying skin ulcers that have scabs on them where she says were draining clear fluid when her legs were swollen. She has minimal edema of her legs, and there is no serous discharge. LABORATORY DATA: Her labs are notable for a white count of 10.8; today 7.6. Hemoglobin 11.7. Platelets are 136. BUN is 21 and creatinine 0.5. UA has 6 white cells. Urine toxicology was negative. In summary, this is a 66-year-old woman with a history of frequent falls and sciatica, mild rhabdomyolysis. I am asked to see her for possible cellulitis. I think her legs are without any significant erythema. Would suggest for the open ulcers we treat them with mupirocin and hold off on any systemic antibiotics at this time. Further recommendations to follow. Please call back if needed. ELANA ZHENG M.D. [place]/[id number]
--- NOTE | 2017-10-07 20:42 | CONS ---
DATE OF CONSULTATION: 10/07/2017 REASON FOR CONSULTATION: Sciatica. HISTORY OF PRESENT ILLNESS: This is a 66-year-old female who has been suffering from "4 years" of sciatic pain. She recently suffered a fall and was admitted due to limited ability to ambulate as well as rhabdomyolysis. She complains only of pain in the right lower extremity now. She states her elbow hurt before, but now feels much better. She states the pain shoots from her lower back into the right lower extremity. PAST MEDICAL HISTORY: Hypertension, diabetes. PAST SURGICAL HISTORY: Denies. SOCIAL HISTORY: Denies alcohol, tobacco, or drugs. PHYSICAL EXAMINATION: General: This is a well-appearing female, in no acute distress. She is seen lying in the hospital bed. She is alert and oriented x3. She is overweight. Musculoskeletal: Examination of the lumbar spine demonstrates no gross deformity. There is some slight tenderness in the lumbar paraspinal region. Positive straight leg raise on the right. No pain with range of motion of the hip, knee, or ankle. Distally sensation is intact to light touch. 2+ DP pulse. 5/5 distal motor. ASSESSMENT: Right lower extremity sciatica. PLAN: I reviewed today's findings with the patient. I also reviewed her CT scan, which demonstrates degenerative change as well as foraminal stenosis. At this point, I am recommending pain management consultation. She can consider lumbar epidural steroid injection. She should work on physical therapy to improve her mobility and stability as well as use of an assistive device. She is a reasonable candidate for epidural steroid injection and pain management will be able to provide this procedure for her. She will follow up with Dr. Sosa as an outpatient after her discharge. CHANTELL LANE M.D. [id number]
[2017-10-07] MEDS ORDERED: INSULIN (NOVOLOG) ASPART 100 UNITS/ML 10ML VIAL ONE (22:56)
[2017-10-07] MEDS: MUPIROCIN CA 2% TOPICAL CREAM 15 GM TUBE TP SCH (22:59)
[2017-10-07] MEDS: VERAPAMIL HCL 120 MG E.R. TABLET PO SCH (23:10)
[2017-10-08] MEDS: ACETAMINOPHEN 325 MG TABLET (FP) PO SCH ×4 (02:46→21:01)
[2017-10-08] MEDS: SODIUM CHLORIDE 1,000 ML IV SCH (05:58)
[2017-10-08] MEDS: HEPARIN NA (PORCINE) 5,000 UNITS/ML 1ML VIAL SQ SCH ×3 (05:58→21:10)
[2017-10-08] MEDS: INSULIN SLIDING SCALE (NOVOLOG) 1 VIAL SQ SCH ×4 (06:00→21:11)
[2017-10-08] MEDS: MUPIROCIN CA 2% TOPICAL CREAM 15 GM TUBE TP SCH ×3 (06:14→21:08)
[2017-10-08 07:18] LABS: HEMOGLOBIN 11.6 GM/dL (10.7-15.3); MCH 28.5 pg (25.7-33.7); MCHC 33.3 g/dl (32.0-36.0); MEAN CELL VOLUME 85.7 fl (80-96); MEAN PLT VOLUME 11.9 fl (7.5-11.1); PLATELET COUNT 127 K/MM3 (134-434); RBC 4.08 M/mm3 (3.60-5.2); WHITE BLOOD COUNT 7.3 K/mm3 (4.0-10.0)
[2017-10-08 07:51] LABS: CHLORIDE 109 mmol/L (98-107); POTASSIUM 3.9 mmol/L (3.5-5.1); SODIUM 144 mmol/L (136-145)
[2017-10-08 07:57] LABS: ANION GAP 10 (8-16); BLOOD UREA NITROGEN 18 mg/dL (7-18); CALCIUM 8.6 mg/dL (8.5-10.1); CO2 25 mmol/L (21-32); CREATININE 0.4 mg/dL (0.55-1.02); GLUCOSE,RANDOM 102 mg/dL (74-106)
--- NOTE | 2017-10-08 09:05 | PN ---
Teaching Attending Note Name of Resident: Brittny Hatfield ATTENDING PHYSICIAN STATEMENT I saw and evaluated the patient. I reviewed the resident's note and discussed the case with the resident. I agree with the resident's findings and plan as documented. SUBJECTIVE: Patient is comfortable , having difficulty with walking. OBJECTIVE: Vital Signs Temperature 98 F 10/08/17 05:00 Pulse Rate 59 L 10/08/17 05:00 Respiratory Rate 20 10/08/17 05:00 Blood Pressure 139/58 10/08/17 05:00 O2 Sat by Pulse Oximetry (%) 99 10/08/17 05:00 CBCD WBC 7.3 K/mm3 (4.0-10.0) 10/08/17 06:00 RBC 4.08 M/mm3 (3.60-5.2) 10/08/17 06:00 Hgb 11.6 GM/dL (10.7-15.3) 10/08/17 06:00 Hct 35.0 % (32.4-45.2) 10/08/17 06:00 MCV 85.7 fl (80-96) 10/08/17 06:00 MCHC 33.3 g/dl (32.0-36.0) 10/08/17 06:00 RDW 15.0 % (11.6-15.6) 10/08/17 06:00 Plt Count 127 K/MM3 (134-434) L 10/08/17 06:00 MPV 11.9 fl (7.5-11.1) H 10/08/17 06:00 CMP Sodium 144 mmol/L (136-145) 10/08/17 06:00 Potassium 3.9 mmol/L (3.5-5.1) 10/08/17 06:00 Chloride 109 mmol/L (98-107) H 10/08/17 06:00 Carbon Dioxide 25 mmol/L (21-32) 10/08/17 06:00 Anion Gap 10 (8-16) 10/08/17 06:00 BUN 18 mg/dL (7-18) 10/08/17 06:00 Creatinine 0.4 mg/dL (0.55-1.02) L 10/08/17 06:00 Creat Clearance w eGFR > 60 (>60) 10/08/17 06:00 Random Glucose 102 mg/dL (74-106) 10/08/17 06:00 Calcium 8.6 mg/dL (8.5-10.1) 10/08/17 06:00 Total Bilirubin 0.6 mg/dL (0.2-1.0) 10/07/17 06:08 AST 26 U/L (15-37) 10/07/17 06:08 ALT 17 U/L (12-78) 10/07/17 06:08 Alkaline Phosphatase 48 U/L (45-117) D 10/07/17 06:08 Total Protein 5.3 g/dl (6.4-8.2) L 10/07/17 06:08 Albumin 2.8 g/dl (3.4-5.0) L 10/07/17 06:08 CARDIAC ENZYMES Creatine Kinase 786 IU/L (26-192) H 10/07/17 06:08 Current Medications Generic Name Dose Route Start Last Admin Trade Name Freq PRN Reason Stop Dose Admin Acetaminophen 650 mg 10/07/17 08:45 10/08/17 02:46 Tylenol - PO Not Given Q6H PANTERA Heparin Sodium (Porcine) 5,000 unit 10/07/17 06:00 10/08/17 05:58 Heparin - SQ 5,000 unit TID PANTERA Administration Sodium Chloride 1,000 mls @ 100 mls/hr 10/07/17 03:16 10/08/17 05:58 Normal Saline - IV 10/08/17 12:14 100 mls/hr ASDIR PANTERA Administration Insulin Aspart 1 vial 10/07/17 07:00 10/08/17 06:00 Novolog Vial Sliding Scale - SQ Not Given ACHS [facility] Protocol Mupirocin 1 applic 10/07/17 22:00 10/08/17 06:14 Bactroban 2% Cream - TP Not Given BID PANTERA Nebivolol 10 mg 10/07/17 10:00 10/07/17 09:02 Bystolic - PO 10 mg DAILY PANTERA Administration Verapamil HCl 120 mg 10/07/17 22:00 10/07/17 23:10 Calan Sr - PO 120 mg HS PANTERA Administration Verapamil HCl 240 mg 10/07/17 10:00 10/07/17 09:02 Calan Sr - PO 240 mg DAILY PANTERA Administration Home Medications Medication Instructions Recorded Nebivolol HCl [Bystolic] 10 mg PO DAILY 10/07/17 Pioglitazone HCl/Metformin HCl 15 - 850 mg PO DAILY 10/07/17 [Pioglitazone-Metformin 15-850] Verapamil HCl [Verapamil ER] 120 mg PO HS 10/07/17 Verapamil HCl [Verapamil ER] 240 mg PO DAILY 10/07/17 Mupirocin Cream [Bactroban 2% 1 applic TP BID #1 tube 10/08/17 Cream -] CT scan of lumbosacral spine noncontrast. Direct axial images were obtained from T10-T11 through upper sacrum. Through the upper sacrum. The study was supplemented with computer generated sagittal and coronal reconstruction images. Patient was rotated to the left side. Findings. Normal lumbar lordosis. Dextroscoliosis of lumbosacral spine. T10-T11, T11-T12. Loss of disc space height. Small Schmorl's node in the inferior endplate of T10, T11. Calcification of the central nucleus pulposus at T11-T12. T11-T12. Moderate facet joint arthropathy. Central spinal canal stenosis. Left neural foramina narrowing. Posterior degenerative osteophytes. T12-L1. Loss of disc space height. Right lateral marginal osteophytes. L1-L2 Loss of the disc space height. Prominent anterior degenerative osteophytes. Small Schmorl's node in the superior endplate of L2. L2-L3. Schmorl's nodes are observed in the adjacent to the greater degree in the inferior endplate of L2 with sclerotic changes. Facet joint arthropathy. L3-L4. Facet joint arthropathy. Central spinal canal stenosis. Mildly increased concavity of the adjacent endplates. L4- L5. Loss of disc space height posteriorly. Vacuum phenomena. Moderate degenerative facet joint arthropathy. Minimal degenerative anterior spondylolisthesis of L4 on L5. Central spinal canal stenosis. Narrowing of the lateral recess of L5. Calcified disc within the left neural foramen. Moderately severe stenosis of the left neural foramen. L5-S1. Loss of disc space height. Degenerative endplate sclerosis. Facet joint arthropathy. Normal alignment of vertebral elements is noted. Normal height the vertebral bodies, intervertebral disc spaces. No evidence of compression deformities, spondylolisthesis or spondylolysis. Normal bony spinal canal. Intact pedicles. No evidence of lytic or blastic lesions. Normal facet joints, spinous processes, transverse processes. Within the limitation of the examination, no disc herniation is seen. No renal stone or hydronephrosis is seen in the visualized kidneys. Distended urinary bladder. Enlarged uterus. Impression. No acute bony abnormalities are seen. Schmorl's nodes are observed at several levels. L3-L4. Facet joint arthropathy. Central spinal canal stenosis. L4-L5. Loss of disc space height posteriorly. Vacuum phenomena. Moderate degenerative facet joint arthropathy. Minimal degenerative anterior spondylolisthesis of L4 on L5. Central spinal canal stenosis. Narrowing of the lateral recess of L5. Calcified disc within the left neural foramen. Moderately severe stenosis of the left neural foramen Reported By: Veto Chapa MD 10/07/17 0837. PE: per resident's note ASSESSMENT AND PLAN: Patient is a 66 y/o female with a history of NIDDM and HTN who is admitted for rhabdomyolysis s/p Fall. # s/p Fall with Rhabdomyolysis - On IVF NS continue. CPK dropping in 500's.. # Moderate to severe spinal canal stenosis: physical therapy as an outpatient and follow up with ortho as an outpatient Lumbar spine CT: L3-L4 facet joint arthropathy, central canal stenosis, L4- L5 moderate degenerative facet joint arthropathy # Sciatica : follow with # T2DM: SS with coverage. eye care and foot care follow up. # Obesity - weight loss was adviced. Consult combination technician. # chronic lower extremity Lesions due to stasis dermatitis and peripheral neuropathy: apply topical wound care for skin abrasions and superficial ulcer. # hx of HTN: continue Home meds DVT prophylaxis - Lovenox 40 mg SQ q 24 hours. Advance directives - Full code PT evaluation , patient was able to walk only 25 feet
[2017-10-08] MEDS ORDERED: PT OWN MED DRAWER 7, Y5N ONE ×2 (09:54→20:59)
[2017-10-08] MEDS: VERAPAMIL HCL 240 MG E.R. TABLET (FP) PO SCH (10:01)
[2017-10-08] MEDS: NEBIVOLOL 10 MG TABLET (FP) PO SCH (10:01)
[2017-10-08 12:20] VITALS: BMI 37.9
[2017-10-08] MEDS: POLYETHYLENE GLYCOL 3350 119 GM BTL PO SCH ×2 (13:59→21:12)
--- NOTE | 2017-10-08 16:54 | PN ---
Physical Exam: SUBJECTIVE: Patient is a 66 y/o female with a history of NIDDM and HTN who is admitted for rhabdomyolysis. She has no acute complaints and no acute events overnight. OBJECTIVE: Vital Signs Temperature 97.4 F L 10/08/17 14:22 Pulse Rate 59 L 10/08/17 14:22 Respiratory Rate 18 10/08/17 14:22 Blood Pressure 136/59 10/08/17 14:22 O2 Sat by Pulse Oximetry (%) 99 10/08/17 05:00 GENERAL: The patient is awake, alert, and fully oriented, in no acute distress. NECK: Trachea midline, full range of motion, supple. LUNGS: Breath sounds equal, clear to auscultation bilaterally. HEART: Regular rate and rhythm, S1, S2 ABDOMEN: Soft, nontender, nondistended, normoactive bowel sounds, EXTREMITIES: 2+ pulses, warm, well-perfused, no edema. PSYCH: Normal mood, normal affect. SKIN: multiple ulcers at lower extremity, no swelling, multiple eccymoses on upper and lower extremities CBC, BMP 10/08/17 06:00 10/08/17 06:00 Abnormal Lab Results 10/07/17 10/08/17 10/08/17 06:08 06:00 06:00 Plt Count 127 L MPV 11.9 H Chloride 109 H Creatinine 0.4 L Creatine Kinase CK-MB (CK-2) Free T3 1.8 L 10/08/17 06:00 Plt Count MPV Chloride Creatinine Creatine Kinase 554 H CK-MB (CK-2) 4.06 H Free T3 Active Medications Acetaminophen (Tylenol -) 650 mg PO Q6H [facility] Last Admin: 10/08/17 15:27 Dose: 650 mg Heparin Sodium (Porcine) (Heparin -) 5,000 unit SQ TID [facility] Last Admin: 10/08/17 15:27 Dose: 5,000 unit Insulin Aspart (Novolog Vial Sliding Scale -) 1 vial SQ ACHS [facility]; Protocol Last Admin: 10/08/17 12:45 Dose: Not Given Mupirocin (Bactroban 2% Cream -) 1 applic TP BID [facility] Last Admin: 10/08/17 10:02 Dose: Not Given Nebivolol (Bystolic -) 10 mg PO DAILY [facility] Last Admin: 10/08/17 10:01 Dose: 10 mg Polyethylene Glycol (Miralax (For Daily Use) -) 17 gm PO BID [facility] Last Admin: 10/08/17 13:59 Dose: Not Given Verapamil HCl (Calan Sr -) 120 mg PO HS [facility] Last Admin: 10/07/17 23:10 Dose: 120 mg Verapamil HCl (Calan Sr -) 240 mg PO DAILY [facility] Last Admin: 10/08/17 10:01 Dose: 240 mg ASSESSMENT/PLAN: Patient is a 66 y/o female with a history of NIDDM and HTN who is admitted for rhabdomyolysis. #Rhabdomyolysis - CK trending down 554 #fall - imagining reviewed and no acute fractures in B/L elbows, head, or cervical spine, no fracture in pelvic - CX ray: no acute chest process #sciatica - spoke to Dr. Paul, suggested MRI and f/u as an outpatient - Dr. Eduardo- f.u outpatient with Dr. Sosa, patient needs pain management for possible epidural steroid injection - f/u PT - Lumbar spine CT: L3-L4 facet joint arthropathy, central canal stenosis, L4- L5 moderate degenerative facet joint arthropathy #DM - SS for now - pioglitazone/metformin held for Rhabdo #HTN - nebivolol 10 mg po daily - verapamil 240 mg in morning, 120 mg hs Dispo: f/u Case management for snf placement, patient only can walk 35 feet with PT Visit type - Emergency Visit Emergency Visit: No - New Patient This patient is new to me today: No - Critical Care Critical Care patient: No
[2017-10-08] MEDS ORDERED: traMADol HCL 50 MG TABLET PO ONE (20:48)
[2017-10-08] MEDS: VERAPAMIL HCL 120 MG E.R. TABLET PO SCH (21:10)
[2017-10-09] MEDS: ACETAMINOPHEN 325 MG TABLET (FP) PO SCH ×6 (02:45→22:10)
[2017-10-09] MEDS: INSULIN SLIDING SCALE (NOVOLOG) 1 VIAL SQ SCH ×4 (06:20→22:09)
[2017-10-09] MEDS: HEPARIN NA (PORCINE) 5,000 UNITS/ML 1ML VIAL SQ SCH ×3 (06:20→22:09)
[2017-10-09] MEDS ORDERED: PT OWN MED DRAWER 7, Y5N ONE ×2 (09:09→21:05)
[2017-10-09] MEDS: VERAPAMIL HCL 240 MG E.R. TABLET (FP) PO SCH (09:40)
[2017-10-09] MEDS: NEBIVOLOL 10 MG TABLET (FP) PO SCH (09:40)
[2017-10-09] MEDS: POLYETHYLENE GLYCOL 3350 119 GM BTL PO SCH ×2 (09:42→22:09)
[2017-10-09] MEDS: MUPIROCIN CA 2% TOPICAL CREAM 15 GM TUBE TP SCH ×2 (13:51→22:11)
--- NOTE | 2017-10-09 13:52 | PN ---
Physical Exam: SUBJECTIVE: Patient is a 66 y/o female with a history of NIDDM and HTN who is admitted for rhabdomyolysis. She complains of back pain but states it is chronic. No acute events overnight. OBJECTIVE: Vital Signs Temperature 98 F 10/09/17 09:15 Pulse Rate 61 10/09/17 09:15 Respiratory Rate 18 10/09/17 09:15 Blood Pressure 140/71 10/09/17 09:15 O2 Sat by Pulse Oximetry (%) 95 10/08/17 21:35 GENERAL: The patient is awake, alert, and fully oriented, in no acute distress. NECK: Trachea midline, full range of motion, supple. LUNGS: Breath sounds equal, clear to auscultation bilaterallye. HEART: Regular rate and rhythm, S1, S2 ABDOMEN: Soft, nontender, nondistended, normoactive bowel sounds, s. EXTREMITIES: 2+ pulses, warm, well-perfused, no edema. PSYCH: Normal mood, normal affect. SKIN: multiple ulcers at lower extremity, erythematous CBC, BMP 10/08/17 06:00 10/08/17 06:00 Active Medications Acetaminophen (Tylenol -) 650 mg PO Q6H [facility] Last Admin: 10/09/17 09:40 Dose: 650 mg Heparin Sodium (Porcine) (Heparin -) 5,000 unit SQ TID [facility] Last Admin: 10/09/17 06:20 Dose: 5,000 unit Insulin Aspart (Novolog Vial Sliding Scale -) 1 vial SQ ACHS [facility]; Protocol Last Admin: 10/09/17 12:32 Dose: Not Given Mupirocin (Bactroban 2% Cream -) 1 applic TP BID [facility] Last Admin: 10/08/17 21:08 Dose: Not Given Nebivolol (Bystolic -) 10 mg PO DAILY [facility] Last Admin: 10/09/17 09:40 Dose: 10 mg Polyethylene Glycol (Miralax (For Daily Use) -) 17 gm PO BID [facility] Last Admin: 10/09/17 09:42 Dose: 17 gm Verapamil HCl (Calan Sr -) 120 mg PO HS [facility] Last Admin: 10/08/17 21:10 Dose: 120 mg Verapamil HCl (Calan Sr -) 240 mg PO DAILY [facility] Last Admin: 10/09/17 09:40 Dose: 240 mg ASSESSMENT/PLAN: Patient is a 66 y/o female with a history of NIDDM and HTN who is admitted for rhabdomyolysis. #Rhabdomyolysis - CK trending down 786 - NS @100 #fall - imagining reviewed and no acute fractures in B/L elbows, head, or cervical spine - CX ray: no acute chest process #sciatica - spoke to Dr. Paul, suggested MRI and f/u as an outpatient - f/u Dr. Eduardo - f/u PT - Lumbar spine CT: L3-L4 facet joint arthropathy, central canal stenosis, L4- L5 moderate degenerative facet joint arthropathy #DM - SS for now - pioglitazone/metformin held for Rhabdo #HTN - nebivolol 10 mg po daily - verapamil 240 mg in morning, 120 mg hs Dispo: f/u with insurance so patient can go to a prison facility Visit type - Emergency Visit Emergency Visit: No - New Patient This patient is new to me today: No - Critical Care Critical Care patient: No
[2017-10-09] MEDS ORDERED: traMADol HCL 50 MG TABLET PO ONE (14:52)
--- NOTE | 2017-10-09 18:55 | PN ---
Teaching Attending Note Name of Resident: Brittny Hatfield ATTENDING PHYSICIAN STATEMENT I saw and evaluated the patient. I reviewed the resident's note and discussed the case with the resident. I agree with the resident's findings and plan as documented. SUBJECTIVE: No fever or chills. No abd pain. has lower back pain. no weakness, numbness or tingling, no bowel or bladder incontinence OBJECTIVE: NAD CV: RRR Lungs: CTAB Ext: 1+ edema, scabs and small ulcers with no discharge . erythema in lower part . Nl warmth Neuro of LE : strength 5/5 in hip flexion , knee flexion and extension , ankle dorsiflexion and plantar lfexion . nl sensation to light touch , 2+ knee jerk ASSESSMENT AND PLAN: Patient is a 66 y/o female with a history of NIDDM , lower back pain, and HTN who presented after a fall . she was found to have Rhabdo 1- S/p fall . No Fx or bleed 2- Rhabdo: off IVF , CPK improved 3- Lower back pain. CT with spinal stenosis, and DJD. NL neuro exam of LE and has no bowel or bladder incontinence. PT and f/u with ortho or neuro sx as out pt 4- DM : coverage . 5- Incidental 8 cm uterine lesion , likely fibroid , but need to be followed as out pt 6- HTN: cont Nebivelol and cardizem dispo : possible rehab placement tomorrow
[2017-10-09] MEDS: VERAPAMIL HCL 120 MG E.R. TABLET PO SCH (22:11)
[2017-10-10] MEDS: ACETAMINOPHEN 325 MG TABLET (FP) PO SCH ×4 (02:45→22:17)
[2017-10-10] MEDS: HEPARIN NA (PORCINE) 5,000 UNITS/ML 1ML VIAL SQ SCH ×3 (06:07→22:18)
[2017-10-10] MEDS: INSULIN SLIDING SCALE (NOVOLOG) 1 VIAL SQ SCH ×4 (06:07→22:18)
[2017-10-10] MEDS ORDERED: NAPROXEN 375 MG TABLET (FP) PO ONE (08:30)
[2017-10-10] MEDS ORDERED: PT OWN MED DRAWER 7, Y5N ONE ×2 (09:44→20:34)
[2017-10-10] MEDS: NEBIVOLOL 10 MG TABLET (FP) PO SCH (09:52)
[2017-10-10] MEDS: VERAPAMIL HCL 240 MG E.R. TABLET (FP) PO SCH (09:52)
[2017-10-10] MEDS: POLYETHYLENE GLYCOL 3350 119 GM BTL PO SCH ×2 (09:53→22:18)
[2017-10-10] MEDS: MUPIROCIN CA 2% TOPICAL CREAM 15 GM TUBE TP SCH ×2 (09:53→22:18)
[2017-10-10] MEDS ORDERED: INSULIN (NOVOLOG) ASPART 100 UNITS/ML 10ML VIAL ONE ×2 (10:59→20:34)
[2017-10-10] MEDS ORDERED: PIOGLITAZONE HCL 15 MG TABLET (FP) PO ONE (14:48)
--- NOTE | 2017-10-10 17:25 | PN ---
Teaching Attending Note Name of Resident: Brittny Hatfield ATTENDING PHYSICIAN STATEMENT I saw and evaluated the patient. I reviewed the resident's note and discussed the case with the resident. I agree with the resident's findings and plan as documented. SUBJECTIVE: No fever or chills . No abd pain , has lower back pain. no weakness, numbness or tingling in LE OBJECTIVE: NAD, awake , alert, refused to move from chair to bed for examination CV: RRR Lungs: CTAB Ext: 1+ edema, scabs and small ulcers with no discharge. erythema in lower part. Nl warmth Neuro of LE : strength 5/5 in hip flexion , knee flexion and extension , ankle dorsiflexion and plantar lfexion . nl sensation to light touch ASSESSMENT AND PLAN: Patient is a 66 y/o female with a history of NIDDM , lower back pain, and HTN who presented after a fall . she was found to have Rhabdo 1- S/p fall . No Fx or bleed 2- Rhabdo: off IVF, CPK improved 3- Lower back pain. CT with spinal stenosis, and DJD. NL neuro exam of LE and has no bowel or bladder incontinence. walked with PT well today. f/u with ortho or neuro sx after dc 4- DM : coverage . 5- Incidental 8 cm uterine lesion , likely fibroid , but need to be followed as out pt 6- HTN: cont Nebivelol and cardizem. Dispo: will ask psych to evaluate competency and psych situation to assess safety of discharge to home
--- NOTE | 2017-10-10 18:10 | PN ---
Physical Exam: SUBJECTIVE: Patient is a 66 y/o female with a history of NIDDM and HTN who is admitted for rhabdomyolysis. No acute events overnight. OBJECTIVE: Vital Signs Temperature 98.4 F 10/10/17 14:45 Pulse Rate 55 L 10/10/17 14:45 Respiratory Rate 20 10/10/17 14:45 Blood Pressure 139/57 10/10/17 14:45 O2 Sat by Pulse Oximetry (%) 99 10/10/17 13:00 GENERAL: The patient is awake, alert, and fully oriented, in no acute distress. NECK: Trachea midline, full range of motion, supple. LUNGS: Breath sounds equal, clear to auscultation bilaterallye. HEART: Regular rate and rhythm, S1, S2 ABDOMEN: Soft, nontender, nondistended, normoactive bowel sounds, s. EXTREMITIES: 2+ pulses, warm, well-perfused, no edema. PSYCH: Normal mood, normal affect. SKIN: multiple ulcers at lower extremity, erythematous Active Medications Acetaminophen (Tylenol -) 650 mg PO Q6H [facility] Last Admin: 10/10/17 14:33 Dose: 650 mg Heparin Sodium (Porcine) (Heparin -) 5,000 unit SQ TID [facility] Last Admin: 10/10/17 14:33 Dose: 5,000 unit Insulin Aspart (Novolog Vial Sliding Scale -) 1 vial SQ [facility]; Protocol Last Admin: 10/10/17 17:13 Dose: 1 unit Metformin HCl (Glucophage -) 850 mg PO DAILY@0700 [facility] Mupirocin (Bactroban 2% Cream -) 1 applic TP BID [facility] Last Admin: 10/10/17 09:53 Dose: 1 applic Nebivolol (Bystolic -) 10 mg PO DAILY [facility] Last Admin: 10/10/17 09:52 Dose: 10 mg Pioglitazone HCl (Actos -) 15 mg PO DAILY@0700 [facility] Polyethylene Glycol (Miralax (For Daily Use) -) 17 gm PO BID [facility] Last Admin: 10/10/17 09:53 Dose: Not Given Verapamil HCl (Calan Sr -) 120 mg PO HS [facility] Last Admin: 10/09/17 22:11 Dose: 120 mg Verapamil HCl (Calan Sr -) 240 mg PO DAILY [facility] Last Admin: 10/10/17 09:52 Dose: 240 mg ASSESSMENT/PLAN: Patient is a 66 y/o female with a history of NIDDM and HTN who is admitted for rhabdomyolysis. #fall - imagining reviewed and no acute fractures in B/L elbows, head, or cervical spine - CX ray: no acute chest process - f/u psych if patient a safe discharge #sciatica - spoke to Dr. Paul, suggested MRI and f/u as an outpatient - f/u Dr. Eduardo - f/u PT - Lumbar spine CT: L3-L4 facet joint arthropathy, central canal stenosis, L4- L5 moderate degenerative facet joint arthropathy #Rhabdomyolysis: resolved #DM - SS for now - pioglitazone/metformin resumed #HTN - nebivolol 10 mg po daily - verapamil 240 mg in morning, 120 mg hs Dispo: f/u with psych to determine if patient safe to go home Visit type - Emergency Visit Emergency Visit: No - New Patient This patient is new to me today: No - Critical Care Critical Care patient: No
[2017-10-10] MEDS: VERAPAMIL HCL 120 MG E.R. TABLET PO SCH (22:18)
[2017-10-11] MEDS: ACETAMINOPHEN 325 MG TABLET (FP) PO SCH ×4 (04:02→13:53)
[2017-10-11] MEDS ORDERED: PT OWN MED DRAWER 7, Y5N ONE (06:13)
[2017-10-11] MEDS ORDERED: INSULIN (NOVOLOG) ASPART 100 UNITS/ML 10ML VIAL ONE ×2 (06:25→11:12)
[2017-10-11] MEDS: HEPARIN NA (PORCINE) 5,000 UNITS/ML 1ML VIAL SQ SCH ×3 (06:30→22:30)
[2017-10-11] MEDS: PIOGLITAZONE HCL 15 MG TABLET (FP) PO SCH (06:30)
[2017-10-11] MEDS: INSULIN SLIDING SCALE (NOVOLOG) 1 VIAL SQ SCH ×4 (06:31→22:42)
[2017-10-11] MEDS: NEBIVOLOL 10 MG TABLET (FP) PO SCH (09:36)
[2017-10-11] MEDS: MUPIROCIN CA 2% TOPICAL CREAM 15 GM TUBE TP SCH ×2 (09:36→22:31)
[2017-10-11] MEDS: VERAPAMIL HCL 240 MG E.R. TABLET (FP) PO SCH (09:36)
[2017-10-11] MEDS: POLYETHYLENE GLYCOL 3350 119 GM BTL PO SCH ×2 (09:37→22:26)
--- NOTE | 2017-10-11 12:52 | CON.PSY ---
Psychiatry Consult Chief Complaint: 66 Year old female with multiple medical conditions admitted following a fall. Patient seen for Psych eval to determine her vcapacity to make decisons at this time and ? safe discharge. - Previous Psychiatric Treatment Outpatient: None Inpatient: None - Previous Substance Abuse Treatment Outpatient: None Inpatient: None - Current Medications Current Medications: Active Medications Acetaminophen (Tylenol -) 650 mg PO Q6H [facility] Last Admin: 10/11/17 09:34 Dose: Not Given Heparin Sodium (Porcine) (Heparin -) 5,000 unit SQ TID [facility] Last Admin: 10/11/17 06:30 Dose: 5,000 unit Insulin Aspart (Novolog Vial Sliding Scale -) 1 vial SQ ACHS [facility]; Protocol Last Admin: 10/11/17 11:25 Dose: 1 unit Metformin HCl (Glucophage -) 850 mg PO DAILY@0700 [facility] Last Admin: 10/11/17 06:30 Dose: 850 mg Mupirocin (Bactroban 2% Cream -) 1 applic TP BID [facility] Last Admin: 10/11/17 09:36 Dose: 1 applic Nebivolol (Bystolic -) 10 mg PO DAILY [facility] Last Admin: 10/11/17 09:36 Dose: 10 mg Pioglitazone HCl (Actos -) 15 mg PO DAILY@0700 [facility] Last Admin: 10/11/17 06:30 Dose: 15 mg Polyethylene Glycol (Miralax (For Daily Use) -) 17 gm PO BID [facility] Last Admin: 10/11/17 09:37 Dose: Not Given Verapamil HCl (Calan Sr -) 120 mg PO HS [facility] Last Admin: 10/10/17 22:18 Dose: 120 mg Verapamil HCl (Calan Sr -) 240 mg PO DAILY [facility] Last Admin: 10/11/17 09:36 Dose: 240 mg - Allergies Allergies: Allergies Allergy/AdvReac Type Severity Reaction Status Date / Time Penicillins AdvReac Itching Verified 10/07/17 04:54 - Current Living Status Usual Living Arrangement: Alone - Current Mental Status Evaluation Appearance: Disheveled Attitude: Cooperative - Affect Affect: Constrictive - Mood Mood: Euthymic - Speech/Language Expressive: Coherent - Psychomotor Activity Psychomotor Activity: Slowed - Thought Process Thought Process: Intact - Thought Content Hallucinations: Absent Delusions: Absent - Self Perception Self Perception: No Impairment - Cognition Attention: Alert Orientation: Time Memory, Immediate Recall: Intact Memory, Short Term: 2/3 Memory, Remote with Promptin/3 - Concentration Serial Sevens Intact: No Simple Calculations Intact: Yes - Abstraction Proverb Interpretation: Intact Judgement: Minimally Impaired - Insight Insight: Intact - Impulse Control Impulse Control: Good Control - Suicidal Ideation Suicidal Ideation: No - Homicidal Ideation Homicidal Ideation: No Assessment/Plan 1) There is no clinical evidence that patient is danger to self or others at this time. 2) patient has the functional capacity to make decisions at this time.
--- NOTE | 2017-10-11 14:17 | PN ---
Teaching Attending Note Name of Resident: Brittny Hatfield ATTENDING PHYSICIAN STATEMENT I saw and evaluated the patient. I reviewed the resident's note and discussed the case with the resident. I agree with the resident's findings and plan as documented. SUBJECTIVE: no fever or chills. back pain . no weakness OBJECTIVE: NAD, awake , alert CV: RRR Lungs: CTAB Ext: 1+ edema, scabs and small ulcers with no discharge. erythema in lower part. Nl warmth Neuro of LE : strength 5/5 in hip flexion , knee flexion and extension , ankle dorsiflexion and plantar lfexion . nl sensation to light touch ASSESSMENT AND PLAN: Patient is a 66 y/o female with a history of NIDDM , lower back pain, and HTN who presented after a fall . she was found to have Rhabdo 1- S/p fall . No Fx or bleed 2- Rhabdo: off IVF 3- Lower back pain. CT with spinal stenosis, and DJD. PT as ut pt f/u with ortho as out pt 4- DM : resume po home meds . 5- Incidental 8 cm uterine lesion , likely fibroid , but need to be followed as out pt with [employer] [employer] referral given 6- HTN: cont Nebivelol and cardizem. seen by psych. dc home today. PT as out pt
--- NOTE | 2017-10-11 15:57 | DS ---
Physical Exam: SUBJECTIVE: Patient is a 66 y/o female with a history of NIDDM and HTN who is admitted for rhabdomyolysis. No acute events overnight. OBJECTIVE: Vital Signs Temperature 97.5 F L 10/11/17 14:03 Pulse Rate 69 10/11/17 14:03 Respiratory Rate 18 10/11/17 14:03 Blood Pressure 146/50 10/11/17 14:03 O2 Sat by Pulse Oximetry (%) 98 10/11/17 09:00 PHYSICAL EXAM GENERAL: The patient is awake, alert, and fully oriented, in no acute distress. NECK: Trachea midline, full range of motion, supple. LUNGS: Breath sounds equal, clear to auscultation bilaterallye. HEART: Regular rate and rhythm, S1, S2 ABDOMEN: Soft, nontender, nondistended, normoactive bowel sounds, s. EXTREMITIES: 2+ pulses, warm, well-perfused, no edema. PSYCH: Normal mood, normal affect. SKIN: multiple ulcers at lower extremity, erythematous LABS Laboratory Results - last 24 hr 10/10/17 10/10/17 10/11/17 17:13 22:11 06:28 POC Glucometer 168 183 148 10/11/17 11:24 POC Glucometer 173 HOSPITAL COURSE: Date of Admission:10/09/17 Patient is a 66 y/o female with a history of NIDDM and HTN who presented for fall. Patient had a mechanical fall and had imaging done throughout her body. Xrays of her Elbow were negative for fracutres. Lumbar CT, Pelvis CT, and Head CT were all negative for acute fracture or any hemorrhage. Patient presented with a Ck of 988. her Rhabdo resolved with fluids and her creatinine kinase trended down. Patient was evaluated by PT and able to walk on her own. Patient was seen by psychiatry and deemed no risk to herself. Patient is stable and will be discharged home. 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 We did thorough imaging of your body and did not find any fractures. For your history of sciatica you can follow up with Dr. Sosa as an outpatient. We are going to refer you to supervisor paint department, Nurse Practitioner Claudine Mancilla, to help you manage your sciatica pain. You should follow up with her in a week. You were seen by infectious disease, Dr. Carter. You may apply Bactroban 2% cream to your ulcers to help them heal. You can continue to take your home medications as prescribed. You should follow up with your primary care physician within one week. Please return to the ED if you have chest pain, shortness of breath, nausea, vomiting, or diarrhea. you have a lesion in your uterus ( 8 cm nodule ) which could be fibroid but you need it checked to make sergio it is not cancer 100 %. follow with Dr. Rinaldi for this issue do not exceed more than 4 g of tylenol in 24 hour Referrals: Rebecca Colon MD [Primary Care Provider] - 1 Week Nader Sosa MD [Staff Physician] - 1 Week Jesus Rinaldi MD [Staff Physician] - 2 Weeks Claudine Mancilla NP [Nurse Practitioner] - Disposition: VNS/HOME HEALTH CARE - Home Medications Comprehensive Discharge Medication List: Ambulatory Orders Nebivolol HCl [Bystolic] 10 mg PO DAILY 10/07/17 Pioglitazone HCl/Metformin HCl [Pioglitazone-Metformin 15-850] 15 - 850 mg PO DAILY 10/07/17 Verapamil HCl [Verapamil ER] 120 mg PO HS 10/07/17 Verapamil HCl [Verapamil ER] 240 mg PO DAILY 10/07/17 Mupirocin Cream [Bactroban 2% Cream -] 1 applic TP BID #1 tube 10/08/17 Acetaminophen [Tylenol] 650 mg PO Q6H #1 capsule 10/11/17 This patient is new to me today: No Emergency Visit: No Critical Care patient: No - Discharge Referral Referred to [facility] No
[2017-10-11] MEDS: VERAPAMIL HCL 120 MG E.R. TABLET PO SCH (22:31)
[2017-10-12] MEDS: INSULIN SLIDING SCALE (NOVOLOG) 1 VIAL SQ SCH ×2 (07:01→11:00)
[2017-10-12] MEDS: HEPARIN NA (PORCINE) 5,000 UNITS/ML 1ML VIAL SQ SCH ×2 (07:02→14:06)
[2017-10-12] MEDS: PIOGLITAZONE HCL 15 MG TABLET (FP) PO SCH (07:02)
[2017-10-12] MEDS: ACETAMINOPHEN 325 MG TABLET (FP) PO SCH ×2 (08:45→14:06)
[2017-10-12] MEDS ORDERED: PT OWN MED DRAWER 7, Y5N ONE (10:07)
[2017-10-12] MEDS: VERAPAMIL HCL 240 MG E.R. TABLET (FP) PO SCH (11:05)
[2017-10-12] MEDS: NEBIVOLOL 10 MG TABLET (FP) PO SCH (11:05)
[2017-10-12] MEDS: POLYETHYLENE GLYCOL 3350 119 GM BTL PO SCH (11:06)
[2017-10-12] MEDS: MUPIROCIN CA 2% TOPICAL CREAM 15 GM TUBE TP SCH (11:06)
[2017-10-12 14:50] VITALS: BP 143/62; PULSE 56; TEMP 98.4
--- NOTE | 2017-10-12 16:30 | PN ---
Teaching Attending Note Name of Resident: Justyna Cohen ATTENDING PHYSICIAN STATEMENT I saw and evaluated the patient. I reviewed the resident's note and discussed the case with the resident. I agree with the resident's findings and plan as documented. SUBJECTIVE: No fever or chills. walking to bathroom. no SOB. did not leave yesterday as she did not have a ride OBJECTIVE: NAD, awake , alert CV: RRR Lungs: CTAB Ext: 1+ edema, scabs and small ulcers with no discharge. erythema in lower part. Nl warmth ASSESSMENT AND PLAN: Patient is a 66 y/o female with a history of NIDDM , lower back pain, and HTN who presented after a fall . she was found to have Rhabdo 1- S/p fall . No Fx or bleed 2- Rhabdo: off IVF 3- Lower back pain. CT with spinal stenosis, and DJD. PT as ut pt f/u with ortho as out pt 4- DM : resume po home meds . 5- Incidental 8 cm uterine lesion , likely fibroid , but need to be followed as out pt with [facility]., referral given 6- HTN: cont Nebivelol and cardizem. home today
== END 2017-10-12 15:36 | disposition home health service (06) ==
LOC: JER 20:35 → UNDOADMOB 22:05 → JERBED 22:05 → INTOOBSV 22:05 → JERBED 10-07 16:00 → J7W 10-07 16:00 → OBSVTOIN 10-08 18:46 → INTOOBSV 10-08 18:46 → J7W 10-09 09:15 → JERBED 10-09 09:15
PROVIDERS: ADMIT Internal Medicine; ATTEND Internal Medicine
PROC: 3E033NZ Introduction of Analgesics, Hypnotics, Sedatives into Peripheral Vein, Percutaneous Approach (ICD-10-PCS; principal; 2017-10-09)
PROC: 3E0337Z Introduction of Electrolytic and Water Balance Substance into Peripheral Vein, Percutaneous Approach (ICD-10-PCS; 2017-10-09)
DX: T79.6XXA Traumatic ischemia of muscle, initial encounter (principal); W01.0XXA Fall on same level from slipping, tripping and stumbling without subsequent striking against object, initial encounter; Z91.81 History of falling; I10 Essential (primary) hypertension; E11.9 Type 2 diabetes mellitus without complications; E66.9 Obesity, unspecified; Z68.37 Body mass index [BMI] 37.0-37.9, adult; Z88.0 Allergy status to penicillin; Z79.84 Long term (current) use of oral hypoglycemic drugs; R29.6 Repeated falls; E04.9 Nontoxic goiter, unspecified; M54.31 Sciatica, right side; M48.00 Spinal stenosis, site unspecified; I87.2 Venous insufficiency (chronic) (peripheral); G62.9 Polyneuropathy, unspecified
CPT/HCPCS: 36415; 70450-TC; 71046-TC-FY; 72125-TC; 72131-TC; 72192-TC; 73070-TC-LT-FY; 73070-TC-RT-FY; 80048; 80053; 80307; 81003; 81015; 82550; 82553; 82962; 83605; 83735; 84100; 84439; 84443; 84481; 85027; 93005; 93010; 96374; 96375; 97116-GP; 97162-GP; 99284-25; G0378; J0131; J1644; J7030